=== PATIENT | male | born 1955 ===

== ENCOUNTER → 2021-11-28 00:19 | Outpatient (CLI) | payer OTHER, MEDICAID, SELFPAY ==
--- NOTE | 2021-11-28 10:30 | DI.NM_ITS ---
Exam(s) NM BONE SCAN WHOLE BODY GRP EXAM: NM BONE SCAN WHOLE BODY GRP CLINICAL HISTORY: PROSTATE CA. TECHNIQUE: Injected Dose: 25 mCi Tc-99m MDP Delayed Images: 2-3 hours. COMPARISON: No exams were available for comparison FINDINGS: Symmetric axial uptake. Bilateral renal excretion is identified. There is a focus of increased radiot racer uptake on the right side at the T11 level. There is also increased uptake seen on the right si de at the L5 level. This may be associated with facets and degenerative change. There is a focus of increased radiotracer uptake in the anterior left 1st rib and the lateral aspect of the right 5th ri b. There is a tiny focus of increased radiotracer uptake in the right mandible. There is increased activity seen in the shoulders bilaterally which is likely degenerative. IMPRESSION: 1. Several foci of increased radiotracer uptake as described. Further plain film correlation is susana mmended. CT correlation for the mandible and ribs may be obtained. Degenerative changes or prior tr auma should be considered. Metastatic disease cannot be excluded. DATA REPOSITORY:
== END ==
PROVIDERS: Visit Provider Internal Medicine
DX: C61 Malignant neoplasm of prostate (principal)
CPT/HCPCS: 78306